=== PATIENT | male | born 1990 | race Caucasian/White ===

== ENCOUNTER 2019-04-05 16:37 | Emergency (ER) | payer OTHER ==
[~2019-04-05] VITALS: Ht 170.2 cm; Wt 70.3 kg
--- NOTE | 2019-04-05 16:40 | NUR ---
PT IS A/OX4, PRESENTS TO THE ER C/O ABD PAIN X 24 HOURS. PT REPORTS RLQ ABD PAIN IS NON-PROVOKED, ACHING IN QUALITY, DOES NOT RADIATE, 7/10, INTERMITTENT. PT ALSO C/O N/V/D X 24 HOURS. VSS. PT DENIES C/P, SOB, DIZZINESS, HEADACHE.
--- NOTE | 2019-04-05 16:48 | NUR ---
AVNI GILMAN AT BEDSIDE FOR MSE.
[2019-04-05] MEDS ORDERED: MORPHINE SULFATE 2 MG/1 ML DISP.SYRIN IV ONE (17:00)
[2019-04-05] MEDS ORDERED: MORPHINE SULFATE 4 MG/1 ML DISP.SYRIN ONE (17:00)
[2019-04-05] MEDS ORDERED: ONDANSETRON 4 MG/2 ML VIAL IV ONE (17:00)
[2019-04-05] MEDS ORDERED: ONDANSETRON 4 MG/2 ML VIAL ONE (17:00)
[2019-04-05] MEDS ORDERED: IV NORMAL SALINE 1000 ML BAG IV ONE (17:00)
[2019-04-05 17:08] LABS: BASOPHILS % (AUTO) 0.2 % (0.0-2.0); HEMATOCRIT 44.4 % (36.7-47.1); HEMOGLOBIN 14.7 g/dL (12.5-16.3); LYMPHOCYTES # (AUTO) 0.8 K/uL (20.0-40.0); LYMPHOCYTES % (AUTO) 6.9 % (20.5-51.5); MEAN CORPUSCULAR HEMOGLOBIN 27.4 uug (23.8-33.4); MEAN CORPUSCULAR HGB CONC 33 g/dL (32.5-36.3); MEAN CORPUSCULAR VOLUME 82.9 fL (73.0-96.2); MONOCYTES % (AUTO) 8.8 % (0.0-11.0); NEUTROPHILS # (AUTO) 9.4 K/uL (1.8-8.9); NEUTROPHILS % (AUTO) 84.1 % (38.5-71.5); PLATELET COUNT (AUTO) 255 K/uL (152-348); RED BLOOD CELL COUNT(AUTO) 5.35 MIL/uL (4.06-5.63); WHITE BLOOD COUNT (AUTO) 11.2 K/uL (3.6-10.2)
[2019-04-05] MEDS ORDERED: IV NORMAL SALINE 250 ML IV ONE (17:18)
[2019-04-05] MEDS ORDERED: IOHEXOL 300MG/ML 100 ML INFUS..BTL ONE (17:18)
[2019-04-05] MEDS ORDERED: SWABABLE VALVE TRANSFER SET EA MC ONE (17:18)
--- NOTE | 2019-04-05 17:20 | NUR ---
PT TAKEN TO RADIOLOGY FOR CT SCAN W/ IV CONTRAST. PT IS "OKAY TO CT SCAN PENDING BUN/CREATININE" PER ER MD.
[2019-04-05 17:22] LABS: CREATININE 1.3 mg/dL (0.6-1.3); POTASSIUM 3.8 mmol/L (3.5-5.1)
[2019-04-05 17:27] LABS: BILIRUBIN,DIRECT 0.1 mg/dL (0.0-0.2); BILIRUBIN,TOTAL 0.5 mg/dL (0.2-1.0); TOTAL PROTEIN, SERUM 8.2 g/dL (6.4-8.2)
--- NOTE | 2019-04-05 17:30 | NUR ---
PT BACK IN ER FROM RADIOLOGY.
[2019-04-05] MEDS ORDERED: KETOROLAC TROMETHAMINE 30 MG INJ ONE (17:39)
[2019-04-05] MEDS ORDERED: FENTANYL CITRATE 100 MCG/2 ML AMPUL ONE (17:39)
[2019-04-05] MEDS ORDERED: FENTANYL CITRATE 100 MCG/2 ML AMPUL IV ONE (17:45)
[2019-04-05] MEDS ORDERED: KETOROLAC TROMETHAMINE 30 MG INJ IVP ONE (17:45)
[2019-04-05] MEDS ORDERED: IV NS 1000 ML 1,000 ML IV ONE (18:00)
[2019-04-05 18:07] LABS: *BILIRUBIN,URIN NEGATIVE (NEGATIVE); *BLOOD, URINE 3+ (NEGATIVE); *CLARITY,URINE CLEAR (CLEAR); *COLOR,URINE YELLOW (YELLOW); *KETONES,URINE 2+ (NEGATIVE); *UROBILINOGEN,URINE 0.2 E.U./dl (NORMAL); LEUKOCYTE ESTERASE ,URINE NEGATIVE (NEGATIVE); NITRITE, URINE NEGATIVE (NEGATIVE); PH,URINE 6.5 (5.0-8.0); UGLUCOSE NEGATIVE (NEGATIVE)
[2019-04-05 18:16] LABS: BACTERIA,URINE NONE SEEN /HPF (NONE SEEN); SQUAMOUS EPITHELIAL CELL,UR FEW /HPF (NONE SEEN); WBC,URINE 0-3 /HPF (0-3)
--- NOTE | 2019-04-05 18:38 | NUR ---
IV removed. Catheter intact and site benign. Pressure and 4x4 gauze applied to site. No bleeding noted. PATIENT IS PAIN FREE AT THIS TIME. Patient discharged to home in stable conditon & steady gait. Written and verbal after care instructions given to patient and significant other. Patient and significant other verbalized understanding & compliance of instructions.
== END 2019-04-05 18:40 | disposition home or self-care (01) ==
LOC: ER 16:37
DX: K52.9 Noninfective gastroenteritis and colitis, unspecified (principal); N20.1 Calculus of ureter
CPT/HCPCS: 36415; 74177; 80048; 80076; 81000; 81001; 83690; 85025; 96361; 96374; 96375; 99284; J1885; J2270; J2405; J3010; Q9967; A4663; J7030; J7050